=== PATIENT | female | born 1980 | race Caucasian/White ===

== ENCOUNTER 2023-12-10 11:19 | Emergency (ER) | payer OTHER, SELFPAY ==
[2023-12-10 11:55] VITALS: BP 140/84; PULSE 103; RESP 19; TEMP 36.6; O2SAT 98; BMI 39.1
--- NOTE | 2023-12-10 12:10 | EXP.UTC ---
Discharge Plan Disposition Patient Disposition: Home, Self-Care Condition: Good Prescriptions Prescriptions: New amoxicillin 875 mg tablet 875 mg PO Q12H Qty: 20 0RF methylprednisolone [Medrol (Raymond)] 4 mg tablets,dose pack See Rx Instructions .Route .COMPLEX 6 Days Qty: 21 0RF Rx Instructions: taper pack; guaifenesin [Mucinex] 600 mg tablet extended release 12hr 600 mg PO BID PRN (Reason: cough) Qty: 20 0RF benzonatate 100 mg capsule 100 mg PO TID PRN (Reason: cough) Qty: 20 0RF No Action atorvastatin 40 mg tablet 40 mg PO DAILY cetirizine 10 mg tablet 10 mg PO DAILY Patient Comments: TAKE 1 TABLET BY MOUTH ONCE DAILY FOR 90 DAYS levothyroxine 75 mcg tablet 75 mcg PO DAILY Patient Comments: TAKE 1 TABLET BY MOUTH ONCE DAILY FOR 90 DAYS lisinopril-hydrochlorothiazide 10-12.5 mg tablet 1 tab PO DAILY Patient Comments: TAKE 1 TABLET BY MOUTH ONCE DAILY FOR 90 DAYS Referrals Follow up/Referrals: Henry Carrera MD [Primary Care Provider] - See instructions Activity Restrictions/Add. Instructions Additional Instructions/Restrictions: *Monitor Temp, Over the counter Motrin or Tylenol as directed/as needed Tylenol every 4 hours and Motrin every 6 hours (as long as your family doctor has told you that you can take it) for fever or pain. and straight to ER if unable to lower temp less than 101.0 after medication given *Warm salt water gargles may help to soothe the throat *Throat Lozenges? *Warm fluids like tea with honey may help to soothe the throat? *Sleep elevated *Humidifier/Vaporizer *Flonase 2 sprays in each nostril daily but be aware that it may take 2-3 days before you notice improvement *Bromfed may cause drowsiness. Know how it effects you (your child) before driving, caring for small child, or sending your child to school. Not other antihistamines/allergy medications while taking bromfed Your throat swab was sent for culture. Those results are typically sent to your primary care. Be sure to follow up in 2-3 days with your family doctor/primary care physician if no improvement so they can review those result and treat if necessary. If you don?t have a primary care doctor, I recommend you get one but in the mean time, you will have to return to a walk in clinic Follow up IMMEDIATELY for new or worsening symptoms or no Noticeable improvement over the next 48-72 hours. 911 for difficulty breathing or swallowing Clinical Impressions Clinical Impression: Sinusitis Qualifiers: Sinusitis location: unspecified location Chronicity: unspecified Qualified Code(s): J32.9 - Chronic sinusitis, unspecified Instructions Patient Instructions: Sinusitis, Cough, DI for Sinusitis Discharge ED Provider: Juliet Armenta [facility] General Stated complaint: Cough, weakness Mode of Arrival: Ambulatory Source of Information: Patient Limitations: No Limitations Time Seen by Provider: 12/10/23 12:11 Description of Symptoms (Recalled from Triage Doc. by RN): PATIENT C/O COUGH, WEAKNESS, BODY ACHES, RUNNY NOSE AND CONGESTION X 1 WEEK HEENT Symptoms (Recalled from RN notes): Yes Resp Symptoms (Recalled from RN notes): Yes Skin Symptoms (Recalled from RN notes): No MS Symptoms (Recalled from RN notes): No Functional Status (Recalled from RN notes): WNL History of Present Illness Provider Complaint: Patient states that she has been sick for over a week States that she has been having cough, weakness, runny nose, congestion and all around not feeling well states that today she was still having cough and congestion so she came in to get checked Related Data Home Medications Medication Instructions Recorded Confirmed atorvastatin 40 mg tablet 40 mg PO DAILY 12/10/23 12/10/23 cetirizine 10 mg tablet 10 mg PO DAILY 12/10/23 12/10/23 levothyroxine 75 mcg tablet 75 mcg PO DAILY 12/10/23 12/10/23 lisinopril 10 1 tab PO DAILY 12/10/23 12/10/23 mg-hydrochlorothiazide 12.5 mg tablet Previous Rx's Medication Instructions Recorded amoxicillin 875 mg tablet 875 mg PO Q12H #20 tabs 12/10/23 benzonatate 100 mg capsule 100 mg PO TID PRN cough #20 caps 12/10/23 guaifenesin 600 mg tablet, 600 mg PO BID PRN cough #20 tabs 12/10/23 extended release 12 hr (Mucinex) methylprednisolone 4 mg tablets in See Rx Instructions .Route 12/10/23 a dose pack (Medrol (Raymond)) .COMPLEX 6 days #21 tabs Allergies Allergy/AdvReac Type Severity Reaction Status Date / Time No Known Allergies Allergy Verified 07/04/18 18:45 Worker's Comp Is this a Worker's Comp case?: No [facility] Disclaimer: The information contained in this section may have been updated after the patient was seen, as this information can be updated by other users. Medical History (Updated 12/10/23 @ 12:45 by Juliet Armenta APRN) Hyperlipidemia Hypertension Prediabetes Social History Smoking Status: Never smoker alcohol intake: never substance use type: denies use current occupational status: employed Travel in the last 8 weeks: None ROS Obtained: Yes All systems reviewed & no additional complaints except as documented and Yes Systems reviewed as appropriate & no additional complaints except as documented Constitutional Constitutional: Reports system reviewed and no additional complaints, except as documented, Reports as per HPI, Reports body ache, Reports chills and Reports headache(s) ENT Ears, Nose, Mouth, and Throat: Reports system reviewed and no additional complaints, except as documented, Reports as per HPI, Reports headache(s), Reports nasal congestion, Reports sinus pressure and Reports sore throat Cardiovascular Cardiovascular: Reports system reviewed and no additional complaints, except as documented and Reports as per HPI Respiratory Respiratory: Reports system reviewed and no additional complaints, except as documented, Reports as per HPI, Reports chest congestion and Reports cough Gastrointestinal Gastrointestingal: Reports system reviewed and no additional complaints, except as documented and as per HPI Neurologic Neurologic: Reports headache(s) Physical Exam General General appearance: alert and in no apparent distress ENT ENT exam: Present mucous membranes moist Expanded ENT Exam Nose exam: Present sinus tenderness Throat exam: Present other (Pharyngeal erythema noted with PND) Respiratory Respiratory exam: Present normal lung sounds bilaterally; Absent respiratory distress or wheezes Cardiovascular Cardiovascular exam: Present regular rate, normal rhythm and normal heart sounds Abdominal Exam Abdominal exam: Present soft and normal bowel sounds; Absent distention or tenderness Neurological Exam Neurological exam: Present alert, oriented X3 and normal gait Medical Decision Making Joe Inquiry Pt receiving controlled substance: No Joe was queried for this patient: No Vital Signs: 12/10/23 11:55 Temperature 97.8 F Temperature Source Oral Pulse Rate [Left Brachial] 103 H Respiratory Rate 19 Blood Pressure [Left Arm] 140/84 Blood Pressure Mean [Left Arm] 102 Blood Pressure Source [Left Arm] Automatic Cuff Blood Pressure Position [Left Arm] Sitting 02 Sat by Pulse Oximetry 98 Oxygen Delivery Method Room Air Lab Data Lab results reviewed: Yes I reviewed the patient's lab results.
[2023-12-10 12:33] LABS: UTC Influenza A Antigen Negative (Negative); UTC Influenza B Antigen Negative (Negative)
[2023-12-10 12:47] VITALS: BP 140/84; PULSE 103; RESP 19; TEMP 36.6; O2SAT 98
== END 2023-12-10 12:55 | disposition home or self-care (01) ==
PROVIDERS: Emergency Provider Nurse Practitioner; PCP Internal Medicine Adolescent Medicine
DX: J01.90 Acute sinusitis, unspecified (principal); R51.9 Headache, unspecified; R05.9 Cough, unspecified; R09.81 Nasal congestion; R53.1 Weakness; I10 Essential (primary) hypertension; E78.5 Hyperlipidemia, unspecified; E03.9 Hypothyroidism, unspecified
CPT/HCPCS: 87804; 99204; 99212; G0463

== ENCOUNTER 2024-05-19 13:47 | Outpatient (CLI) | payer OTHER, SELFPAY ==
--- NOTE | 2024-05-19 13:51 | MM_ITS ---
PROCEDURE INFORMATION: Exam: MG Bilateral Screening 3D Mammography Exam date and time: 05/19/2024 1:44 PM Age: 44 years old Clinical indication: Baseline screening mammogram TECHNIQUE: Imaging protocol: Bilateral Screening tomosynthesis and 2D mammography including computer-aided detection (CAD) when performed. COMPARISON: No relevant prior studies available. FINDINGS: MAMMOGRAPHY: Breast composition: There are scattered areas of fibroglandular density. Mass: 1.5 cm mass within the 6 o'clock anterior right breast, approximately 6 cm from the nipple, should be further assessed with spot views in CC/MLO projection. Ultrasound may also be required. Architectural distortion: No new or suspicious architectural distortion. Calcifications: No new or suspicious calcifications are present Asymmetric density: No new or suspicious asymmetric density is present Skin thickening: None. Axillary adenopathy: None. IMPRESSION: 1.5 cm mass within the 6 o'clock anterior right breast, approximately 6 cm from the nipple, should be further assessed with spot views in CC/MLO projection. Ultrasound may also be required. ASSESSMENT: BI-RADS category 0: Incomplete-need additional imaging evaluation
== END 2024-05-19 23:59 | disposition home or self-care (01) ==
LOC: RAD 13:48
PROVIDERS: PCP Internal Medicine Adolescent Medicine; Visit Provider Nurse Practitioner Family
DX: Z12.31 Encounter for screening mammogram for malignant neoplasm of breast (principal)
CPT/HCPCS: 77063; 77067

== ENCOUNTER 2024-06-03 14:53 | Outpatient (CLI) | payer OTHER, SELFPAY ==
--- NOTE | 2024-06-03 14:57 | MM_ITS ---
PROCEDURE INFORMATION: Exam: MG Right Diagnostic Breast Tomosynthesis Exam date and time: 06/03/2024 2:44 PM Age: 44 years old Clinical indication: Patient recalled on the basis of a screening mammogram for further evaluation; Right breast; mass TECHNIQUE: Imaging protocol: Right Diagnostic tomosynthesis and 2D mammography including computer-aided detection (CAD) when performed. Unilateral or bilateral exam. COMPARISON: MG MM DIG SCREENING MAMM BI W/CAD 05/19/2024 1:44 PM FINDINGS: MAMMOGRAPHY: Breast composition: There are scattered areas of fibroglandular density (based on the most recent screening mammogram report). Breast mammogram findings: Digital diagnostic spot compression views of the right breast and 90 degree lateral view of the right breast demonstrate a persistent 1.5 cm mass without associated architectural distortion in the anterior right 6 o'clock axis IMPRESSION: Patient to return for targeted right breast ultrasound for further evaluation of a right breast mass ASSESSMENT: BI-RADS Category 0: Incomplete- Need Additional Imaging Evaluation and/or Prior Mammograms for Comparison.
== END 2024-06-03 23:59 | disposition home or self-care (01) ==
LOC: RAD 14:53
PROVIDERS: PCP Internal Medicine Adolescent Medicine; Visit Provider Nurse Practitioner Family
DX: R92.8 Other abnormal and inconclusive findings on diagnostic imaging of breast (principal)
CPT/HCPCS: 77061; 77065; G0279

== ENCOUNTER 2024-06-15 14:04 | Outpatient (CLI) | payer OTHER, SELFPAY ==
--- NOTE | 2024-06-15 14:08 | US_ITS ---
PROCEDURE INFORMATION: Exam: US Right Breast, Complete Exam date and time: 06/15/2024 2:09 PM Age: 44 years old Clinical indication: Mass in the right breast at the 6 o'clock axis on mammography. TECHNIQUE: Imaging protocol: Complete ultrasound of all four quadrants of the right breast and the retroareolar regions, including ultrasound of the axilla when performed. COMPARISON: MG MM DIG MAMM DX UNILAT RT CAD 06/03/2024 2:44 PM FINDINGS: ULTRASOUND: Breast ultrasound findings: Ultrasound of the right breast at the 6 o'clock axis, 6 cm from the nipple demonstrates an ovoid solid-appearing mass measuring 1.2 x 0.9 x 1.1 cm. While this may represent a fibroadenoma, ultrasound-guided needle biopsy for tissue diagnosis is recommended. Incidentally, there is a benign cyst at the 12 o'clock axis, 7 cm from the nipple measuring 0.4 cm. No axillary adenopathy. IMPRESSION: Indeterminate solid mass in the right breast 6 o'clock axis. Ultrasound-guided needle biopsy is recommended. ASSESSMENT: BI-RADS Category 4: Suspicious.
== END 2024-06-15 23:59 | disposition home or self-care (01) ==
PROVIDERS: PCP Nurse Practitioner Family; Visit Provider Nurse Practitioner Family
DX: N63.41 Unspecified lump in right breast, subareolar (principal)
CPT/HCPCS: 76641

== ENCOUNTER 2024-07-07 08:41 | Outpatient (CLI) | payer OTHER, SELFPAY ==
--- NOTE | 2024-07-07 08:45 | US_ITS ---
FINAL REPORT CLINICAL HISTORY: RT BREAST NODULE 600 -- needle core bx -- dr tod higuera -- mammatome FINDINGS: ULTRASOUND-GUIDED RIGHT BREAST CORE BIOPSY HISTORY: Abnormal ultrasound. Right breast nodule. COMPARISON: Abnormal ultrasound 06/15/2024 and mammogram 06/03/2024 TECHNIQUE: The right breast was prepped in a routine sterile fashion and locally anesthetized with 1% lidocaine. Lesion was identified within the right breast at 6:00. An 11-gauge vacuum-assisted hand-held device was utilized. The needle was positioned posterior to the lesion. Multiple vacuum assisted core samples were obtained. Lesion was noted to be significantly smaller following biopsy. A biopsy marker clip was deployed in satisfactory position. Post biopsy mammogram was performed showing clip in good position. Limited postbiopsy images showed no evidence of significant hemorrhage. Marker clip is noted to be in satisfactory position. Procedure was well tolerated. IMPRESSION: 1. Technically successful guided vacuum assisted core biopsy of right breast lesion as above. 2. 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 Pathology is concordant with mammographic findings. Recommend 6-month sonographic and mammographic follow-up as routine post benign biopsy surveillance Authenticated and ERN
== END 2024-07-07 23:59 | disposition home or self-care (01) ==
LOC: RAD 08:42
PROVIDERS: PCP Nurse Practitioner Family; Visit Provider Nurse Practitioner Family
DX: N63.10 Unspecified lump in the right breast, unspecified quadrant (principal)
CPT/HCPCS: 19083; 77065; C2618

== ENCOUNTER 2025-02-23 12:43 | Outpatient (CLI) | payer BC, SELFPAY ==
--- NOTE | 2025-02-23 12:45 | US_ITS ---
PROCEDURE INFORMATION: Exam: US Right Breast, Complete MG Right Diagnostic Breast Tomosynthesis Exam date and time: 02/23/2025 1:17 PM Age: 45 years old Clinical indication: Short-term radiographic followup; Right breast; biopsy TECHNIQUE: Imaging protocol: Complete ultrasound of all four quadrants of the right breast and the retroareolar regions, including ultrasound of the axilla when performed. Right Diagnostic tomosynthesis and 2D mammography including computer-aided detection (CAD) when performed. Unilateral or bilateral exam. COMPARISON: 1. MG MM CLIP PLACEMENT RT 07/07/2024 10:32 AM 2. MG MM DIG MAMM DX UNILAT RT CAD 06/03/2024 2:44 PM FINDINGS: MAMMOGRAPHY: Breast composition: There are scattered areas of fibroglandular density. Breast mammogram findings: There is no stellate mass, architectural distortion or suspicious microcalcifications to suggest malignancy. No skin thickening or axillary adenopathy. Stable clip in the right lower inner quadrant ULTRASOUND: Breast ultrasound findings: Sonographic images of the right 6 o'clock axis 4 cm from the nipple demonstrates a stable hypoechoic mass measuring 1.3 x 0.6 x 0.9 cm. This is the site of prior biopsy. No other solid or cystic masses noted in the remainder of her right breast. No axillary adenopathy IMPRESSION: No mammographic or sonographic evidence of malignancy. Annual bilateral mammographic screening is recommended insert from unless otherwise clinically indicated. ASSESSMENT: BI-RADS Category 2: Benign.
== END 2025-02-23 23:59 | disposition home or self-care (01) ==
LOC: RAD 12:43
PROVIDERS: PCP Nurse Practitioner Family; Visit Provider Nurse Practitioner Family
DX: R92.8 Other abnormal and inconclusive findings on diagnostic imaging of breast (principal)
CPT/HCPCS: 76641; 77061; 77065; G0279

== ENCOUNTER 2025-07-22 12:57 | Outpatient (CLI) | payer BC, SELFPAY ==
[2025-07-22 14:26] LABS: Alanine Aminotransferase 18 U/L (12-78); Albumin Level 3.7 g/dl (3.5-5.0); Albumin/Globulin Ratio 1.5 (1.1-1.8); Alkaline Phosphatase 105 U/L (38-126); Anion Gap 8.8 mEq/L (5-15); Aspartate Amino Transferase 20 U/L (14-36); Bilirubin,Total 0.5 mg/dl (0.2-1.3); Blood Urea Nitrogen 12 mg/dl (7-17); Calcium 8.8 mg/dl (8.4-10.2); Carbon Dioxide 29 mmol/L (22.0-30.0); Chloride 100 mmol/L (98-107); Cholesterol 137 mg/dl (140-200); Creatinine,Serum 0.70 mg/dl (0.52-1.04); Estimated Glomerular Filt Rate 91 ml/min (>60); GFR (African American) 111 ML/MIN (>60); Globulin 2.5 g/dL (1.3-3.2); Glucose 97 mg/dl (74-100); HDL Cholesterol 50 mg/dl (40-60); Potassium 3.8 mmoL/L (3.5-5.1); Sodium 134 mmol/L (136-145); Total Protein,Serum 6.2 g/dl (6.3-8.2); Triglycerides 67 mg/dl (30-150)
[2025-07-22 14:34] LABS: Hemoglobin A1C 6.2 % (4.0-6.0)
[2025-07-22 14:57] LABS: Thyroid Stimulating Hormone 1.95 uIU/mL (0.465-4.68)
== END 2025-07-22 23:59 | disposition home or self-care (01) ==
LOC: LAB 12:58
PROVIDERS: PCP Internal Medicine Adolescent Medicine; Visit Provider Nurse Practitioner Family
DX: Z00.00 Encounter for general adult medical examination without abnormal findings (principal); E03.9 Hypothyroidism, unspecified; R73.03 Prediabetes
CPT/HCPCS: 36415; 80053; 80061; 83036; 84443